=== PATIENT | male | born 1980 | race Caucasian/White ===

== ENCOUNTER 2017-02-23 11:45 | Observation (INO) | payer SELFPAY ==
[~2017-02-23] VITALS: Ht 165.1 cm; Wt 89.0 kg
[~2017-02-23 11:45] MED LIST: ANTISOL30 EACH EAR; CEPH500C3 PO; CIPR0.3S EACH EAR; CIPR500T4 PO; IBUP800T23 PO; LORTA5 PO
[2017-02-23 11:47] VITALS: BP 158/95; PULSE 101; RESP 17; TEMP 97.8; O2SAT 96
--- NOTE | 2017-02-23 12:10 | PD ---
HPI Chief Complaint: Headache Time Seen by Provider: 12:10 Travel History International Travel<30 days: No Contact w/Intl Traveler<30days: No Traveled to known affect area: No History of Present Illness HPI 37-year-old male came to the emergency room brought by his with history of numbness of his left upper extremity, headache and pressure behind both eyes. Patient says this started at 10:30 AM. 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 Patient has never had these kind of symptoms before. Currently patient says his left hand up to his wrist is feeling numb. He says the light bothers and his vision is slightly blurry. Vital signs are stable otherwise. Patient is a smoker. No other known medical history. [facility] Past Medical History Narrative Medical List of his past medical, surgical, social and family history is reviewed from the nursing note. Social History Tobacco Use: No Allergies-Medications (Allergen,Severity, Reaction): Coded Allergies: No Known Allergies (Unverified Allergy, Unknown, 02/23/17) Comments No known drug allergies. Reported Meds & Prescriptions Reported Meds & Active Scripts Active Narrative Medication List of his home medications reviewed from the nursing note. Review of Systems Except as stated in HPI: all other systems reviewed are Neg Neurologic: Positive: Paresthesia Physical Exam Narrative GENERAL: Awake, alert, anxious, moderate distress SKIN: Focused skin assessment warm/dry. HEAD: Atraumatic. Normocephalic. EYES: Pupils equal and round. No scleral icterus. No injection or drainage. ENT: No nasal bleeding or discharge. Mucous membranes pink and moist. NECK: Trachea midline. No JVD. CARDIOVASCULAR: Regular rate and rhythm. No murmur appreciated. RESPIRATORY: No accessory muscle use. Clear to auscultation. Breath sounds equal bilaterally. GASTROINTESTINAL: Abdomen soft, non-tender, nondistended. Hepatic and splenic margins not palpable. MUSCULOSKELETAL: No obvious deformities. No clubbing. No cyanosis. No edema. NEUROLOGICAL: Awake and alert. No obvious cranial nerve deficits. Motor grossly within normal limits. Normal speech. NIH stroke score of 1-2 slight left upper extremity weakness PSYCHIATRIC: Appropriate mood and affect; insight and judgment normal. Data Data Last Documented VS Vital Signs Date Time Temp Pulse Resp B/P (MAP) Pulse Ox O2 Delivery O2 Flow Rate FiO2 02/23/17 13:14 83 18 129/76 (93) 97 Room Air 02/23/17 12:18 21 02/23/17 11:47 97.8 Orders Orders Activity Bed Rest (02/23/17 ) Electrocardiogram (02/23/17 ) I-Stat Creatinine (02/23/17 12:16) I-Stat Profile (02/23/17 12:16) Prothrombin Time / Inr (Pt) (02/23/17 12:16) Act Partial Throm Time (Ptt) (02/23/17 12:16) Complete Blood Count With Diff (02/23/17 12:16) Fibrinogen (02/23/17 12:16) Creatine Kinase (Cpk) (02/23/17 12:16) Troponin I (02/23/17 12:16) Ua Includes Microscopic (02/23/17 12:16) Drug Screen, Random Urine (02/23/17 12:16) Type And Screen (02/23/17 12:16) Ct Brain W/O Iv Contrast(Rout) (02/23/17 ) Consult Neurology (02/23/17 ) Blood Glucose (02/23/17 12:16) Ecg Monitoring (02/23/17 12:16) Neuro Checks Q2HX12,Q4H (02/23/17 12:16) Nursing Bedside Swallow Assess .ONCE (02/23/17 12:16) Iv Access Insert/Monitor (02/23/17 12:16) NPO (02/23/17 12:16) Oximetry (02/23/17 12:16) Oxygen Administration (02/23/17 12:16) Sodium Chlor 0.9% 1000 Ml Inj (Ns 1000 M (02/23/17 12:16) Resp Oxygen Javier C Titrat 1-4 L (02/23/17 12:16) Cath For Specimen (02/23/17 12:16) Cta Brain W Iv Contrast W 3d (02/23/17 ) Cta Neck W Iv Contrast W 3d (02/23/17 ) (Hub Use Only)Inp Phy Cons/Ref (02/23/17 ) Aspirin (Aspirin) (02/23/17 13:00) Acetaminophen (Tylenol) (02/23/17 13:15) Lipid Profile (02/23/17 13:43) Aspirin Ec (Ecotrin Ec) (02/24/17 09:00) Scd&Teds Bilateral/Knee High DYANA.QSHIFT (02/23/17 13:44) Iohexol 350 Inj (Omnipaque 350 Inj) (02/23/17 13:45) Admit Order (Ed Use Only) (02/23/17 13:52) Echo 2d Comp With Doppler (02/24/17 ) Labs Laboratory Tests Test 02/23/17 12:20 02/23/17 13:10 White Blood Count 6.5 TH/MM3 Red Blood Count 4.84 MIL/MM3 Hemoglobin 14.9 GM/DL Bedside Hemoglobin 15.0 G/DL Hematocrit 44.3 % Bedside Hematocrit 44.0 % Mean Corpuscular Volume 91.4 FL Mean Corpuscular Hemoglobin 30.8 PG Mean Corpuscular Hemoglobin Concent 33.6 % Red Cell Distribution Width 12.8 % Platelet Count 263 TH/MM3 Mean Platelet Volume 6.7 FL Neutrophils (%) (Auto) 67.4 % Lymphocytes (%) (Auto) 22.6 % Monocytes (%) (Auto) 8.8 % Eosinophils (%) (Auto) 0.5 % Basophils (%) (Auto) 0.7 % Neutrophils # (Auto) 4.4 TH/MM3 Lymphocytes # (Auto) 1.5 TH/MM3 Monocytes # (Auto) 0.6 TH/MM3 Eosinophils # (Auto) 0.0 TH/MM3 Basophils # (Auto) 0.0 TH/MM3 CBC Comment DIFF FINAL Differential Comment Prothrombin Time 10.6 SEC Prothromb Time International Ratio 1.0 RATIO Activated Partial Thromboplast Time 27.5 SEC Fibrinogen 314 mg/dL Bedside Sodium 140 MMOL/L Bedside Potassium 3.9 MMOL/L Bedside Chloride 100 MMOL/L Bedside Blood Urea Nitrogen 9 MG/DL Bedside Creatinine 0.9 MG/DL Bedside Glucose 99 MG/DL Total Creatine Kinase 105 U/L Troponin I LESS THAN 0.02 NG/ML Triglycerides Level 122 MG/DL Cholesterol Level 169 MG/DL LDL Cholesterol 104 MG/DL HDL Cholesterol 40.4 MG/DL Cholesterol/HDL Ratio 4.18 RATIO Urine Color YELLOW Urine Turbidity CLEAR Urine pH 6.5 Urine Specific [place] 1.017 Urine Protein NEG mg/dL Urine Glucose (UA) NEG mg/dL Urine Ketones NEG mg/dL Urine Occult Blood NEG Urine Nitrite NEG Urine Bilirubin NEG Urine Urobilinogen LESS THAN 2.0 MG/DL Urine Leukocyte Esterase NEG Urine RBC 1 /hpf Urine WBC LESS THAN 1 /hpf Urine Squamous Epithelial Cells <1 /hpf Urine Opiates Screen NEG Urine Barbiturates Screen NEG Urine Amphetamines Screen NEG Urine Benzodiazepines Screen NEG Urine Cocaine Screen NEG Urine Cannabinoids Screen NEG MDM Medical Decision Making Medical Screen Exam Complete: Yes Emergency Medical Condition: Yes Medical Record Reviewed: Yes Interpretation(s) Twelve-lead EKG was reviewed by me. Normal sinus rhythm, normal axis, nonspecific ST-T wave changes. Heart rate of 76 bpm. Differential Diagnosis CVA, TIA, head bleed Narrative Course 1:40 PM given his symptoms and patient said that his numbness has been increasing and going up to his mid arm I called for a stroke alert. CT head and CTA were negative. I discussed the case with Dr. Simmons who was on for neurology. She is currently here evaluating the patient. Patient is not a TPA candidate which is agreed by both of us. Patient was given 1 full strength aspirin and Tylenol for his headache. Blood test results of back and within normal limits. She would work him up for TIA including MRI and echocardiogram. Awaiting for the hospitalist to call back for admission for observation. Procedures EKG Prior to Arrival: No Physician Communication Physician Communication Dr. Simmons Diagnosis Primary Impression: TIA (transient ischemic attack) Qualified Codes: G45.9 - Transient cerebral ischemic attack, unspecified Admitting Information Admitting Physician Requests: Observation Scripts Osman LICEA (Aspirin ) 81 Mg Tabdr 81 MG PO DAILY for transient neurological symptom, #31 TAB Prov: Marquita Gama 02/24/17 Hernandez Fu MD Feb 23, 2017 12:10
[2017-02-23] MEDS ORDERED: SODIUM CHLOR 0.9% 1000 ML INJ 1,000 ML IV ONE (12:16)
[2017-02-23 12:18] VITALS: O2SAT 95
--- NOTE | 2017-02-23 12:49 | RADRPT ---
EXAM DATE/TIME: 02/23/2017 12:16 [facility] COMPARISON: No previous studies available for comparison. INDICATIONS : Stroke alert bilateral weakness. RADIATION DOSE: 56.35 CTDIvol (mGy) This report was called by Dr. Cedeño to Dr. Fu at 1245 MEDICAL HISTORY : None SURGICAL HISTORY : None. ENCOUNTER: Initial ACUITY: 1 day PAIN SCALE: 5/10 LOCATION: cranial TECHNIQUE: Multiple contiguous axial images were obtained of the head. Using automated exposure control and adj ustment of the mA and/or kV according to patient size, radiation dose was kept as low as reasonably a chievable to obtain optimal diagnostic quality images. DICOM format image data is available electro nically for review and comparison. FINDINGS: CEREBRUM: The ventricles are normal for age. No evidence of midline shift, mass lesion, hemorrhage or acute in farction. No extra-axial fluid collections are seen. POSTERIOR FOSSA: The cerebellum and brainstem are intact. The 4th ventricle is midline. The cerebellopontine angle i s unremarkable. EXTRACRANIAL: The visualized portion of the orbits is intact. SKULL: The calvaria is intact. No evidence of skull fracture. CONCLUSION: Negative exam. Carlitos Cedeño MD on February 23, 2017 at 12:45 Board Certified Radiologist. This report was verified electronically.
[2017-02-23] MEDS ORDERED: ASPIRIN 325 MG TAB PO ONE (13:00)
[2017-02-23 13:02] LABS: I-STAT POTASSIUM 3.9 MMOL/L (3.5-4.9); I-STAT SODIUM 140 MMOL/L (138-146)
[2017-02-23 13:05] LABS: AUTOMATED NEUTROPHIL # 4.4 TH/MM3 (1.8-7.7); BASOPHIL % 0.7 % (0.0-2.0); EOSINOPHIL % 0.5 % (0.0-4.0); HEMATOCRIT 44.3 % (39.0-51.0); HEMO FLAGS DIFF FINAL; LYMPH % 22.6 % (9.0-44.0); LYMPHOCYTE # 1.5 TH/MM3 (1.0-4.8); MEAN CELL VOLUME 91.4 FL (80.0-100.0); MEAN CORPUSCULAR HEMOGLOBIN 30.8 PG (27.0-34.0); MEAN CORPUSCULAR HGB CONC 33.6 % (32.0-36.0); MONO % 8.8 % (0.0-8.0); NEUT % 67.4 % (16.0-70.0); PLATELET COUNT 263 TH/MM3 (150-450); RED BLOOD COUNT 4.84 MIL/MM3 (4.50-5.90); RED CELL DISTRIBUTION WIDTH 12.8 % (11.6-17.2); WHITE BLOOD COUNT 6.5 TH/MM3 (4.0-11.0)
--- NOTE | 2017-02-23 13:05 | RADRPT ---
EXAM DATE/TIME: 02/23/2017 12:24 [facility] COMPARISON: No previous studies available for comparison. INDICATIONS : Stroke alert bilateral arm numnbess. IV CONTRAST: 100 cc Omnipaque 350 (iohexol) IV RADIATION DOSE: 15.39 CTDIvol (mGy) ; Combined studies MEDICAL HISTORY : None SURGICAL HISTORY : None. ENCOUNTER: Initial ACUITY: 1 day PAIN SCALE: 1/10 LOCATION: cranial TECHNIQUE: Volumetric scanning was performed using a multi-row detector CT scanner. The data was post processed with a variety of visualization algorithms including full volume maximum intensity projection, multi -planar sliding thin slab reformation, curved planar reformation, and surface rendering techniques. Using automated exposure control and adjustment of the mA and/or kV according to patient size, radiat ion dose was kept as low as reasonably achievable to obtain optimal diagnostic quality images. DICO M format image data is available electronically for review and comparison. FINDINGS: There is excellent visualization of the major intracranial arteries out to the second-order branch ve ssels. No right A1 segment is identified. The bilateral anterior cerebral arteries fill via a patent left A1 segment and an anterior communicating artery. No significant stenosis or occlusion of the ant erior or middle cerebral arteries is noted. The bilateral posterior cerebral arteries are widely garcia nt. There is a patent left posterior communicating artery. No aneurysm formation is noted. CONCLUSION: 1. No significant stenosis or occlusion of the anterior, middle or posterior cerebral arteries. 2. Bilateral anterior cerebral arteries fill via a patent left A1 segment and an anterior communicati ng artery. 3. No right A1 segment is identified. 4. No aneurysm formation. Gregory Allison MD on February 23, 2017 at 12:59 Board Certified Radiologist. This report was verified electronically.
[2017-02-23 13:13] LABS: APTT (PATIENT) 27.5 SEC (24.3-30.1); PROTHROMBIN TIME - PATIENT 10.6 SEC (9.8-11.6)
[2017-02-23 13:14] VITALS: BP 129/76; PULSE 83; RESP 18; O2SAT 97
[2017-02-23] MEDS ORDERED: ACETAMINOPHEN 325 MG TAB PO ONE (13:15)
[2017-02-23 13:25] LABS: CREATINE KINASE 105 U/L (39-308)
--- NOTE | 2017-02-23 13:34 | RADRPT ---
EXAM DATE/TIME: 02/23/2017 12:22 [facility] COMPARISON: No previous studies available for comparison. INDICATIONS : Stroke alert bilateral arm numbness. IV CONTRAST: 100 cc Omnipaque 350 (iohexol) IV RADIATION DOSE: 15.69 CTDIvol (mGy) ; Combined studies MEDICAL HISTORY : None SURGICAL HISTORY : None. ENCOUNTER: Initial ACUITY: 1 day PAIN SCALE: 1/10 LOCATION: neck Elevated flow velocities and ICA/CCA ratios have been found to correlate with increased degrees of vessel stenosis, calculated as percentage of diameter relative to a normal segment of distal ICA/CCA. TECHNIQUE: Volumetric scanning was performed using a multirow detector CT scanner. The data was post processed with a variety of visualization algorithms including full-volume maximum intensity projection, multip lanar sliding thin-slab reformation, curved-planar reformation, and surface-rendering techniques. Us ing automated exposure control and adjustment of the mA and/or kV according to patient size, radiatio n dose was kept as low as reasonably achievable to obtain optimal diagnostic quality images. DICOM f ormat image data is available electronically for review and comparison. FINDINGS: AORTIC ARCH: There is a three-vessel origin of the great vessels from the aorta. No evidence of ostial narrowing. RIGHT CAROTID: The common carotid artery is intact. The carotid bulb has a normal configuration without ulceration o r narrowing. The internal carotid artery lumen is smooth without stenosis. The external carotid trina ry is intact. LEFT CAROTID: The common carotid artery is intact. The carotid bulb has a normal configuration without ulceration or narrowing. The internal carotid artery lumen is smooth without stenosis. The external carotid ar kristine is intact. VERTEBRALS: Slightly asymmetric with 2 arteries with a dominant right vertebral artery. No stenotic lesions are seen. Miscellaneous: Subcentimeter nodule in the anterior right thyroid lobe. Visualized lung apices are clear. Bilateral enlarged level I, II and III nodes are measuring up to 11 mm on the right and 11 mm on the left. CONCLUSION: 1. Normal neck CTA examination without evidence for significant flow limiting stenosis or dissection. 2. Nonspecific bilateral cervical adenopathy with lymph nodes measuring up to 11 mm in short axis dino meter. Jose G Borjas MD on February 23, 2017 at 13:28 Board Certified Radiologist. This report was verified electronically.
[2017-02-23] MEDS ORDERED: IOHEXOL 350 MG/ML 10 ML VIAL (for RAD DIAG) IVCONTRAST ONE (13:45)
[2017-02-23 13:53] LABS: BLOOD, URINE NEG (NEG); GLUCOSE,URINE NEG (NEG); KETONE, URINE NEG (NEG); NITRITE,URINE NEG (NEG); PH, URINE 6.5 (5.0-8.5); SQUAMOUS EPITHELIAL CELL URINE <1 /hpf (0-5); URINE COLOR YELLOW (YELLW/STRAW)
--- NOTE | 2017-02-23 14:53 | MB ---
cc: ADAM PERRY M.D. DATE OF CONSULTATION 02/23/2017 DATE OF 1980 REASON FOR CONSULTATION Initially came in as a possible Stroke Alert. 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 He had a CAT scan and a CTA that came back unremarkable, and still waiting on the carotids. He still has some pain pressure behind his eyes as well as some lack of sensation, numbness and tingling what he describes from the elbow down to his fingers. Nothing in the legs or in the right arm. He denies any past medical history. He stated he just got over a sinus infection. He denies any head trauma. 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 Denies any significant neck pain. MEDICATIONS Medicines at home are: 1. Ibuprofen. 2. Cipro. 3. Antipyrine benzocaine otic. 4. [place]. 5. Keflex. ALLERGIES None reported to medication. SOCIAL HISTORY Alcohol. No tobacco. PHYSICAL EXAMINATION VITAL SIGNS: Temperature 97.8, heart rate 83, respiratory rate 18, blood pressure 129/76. Satting 97% on room air. NECK: Supple. No bruits. Range of motion is normal. HEART: Regular. LUNGS: Clear. NEUROLOGIC: He is awake, alert and oriented. He is fluent. His pupils are reactive. Visual harmon are full. His face is symmetrical. Tongue is midline. No dysarthria. No odynophagia. Motor-sharif no drift. No leg lag. And [employer] are symmetrical. Cerebellar testing [id number] is normal. DTRs are 1-2+. Toes are downgoing bilaterally. Strength intact throughout. Sensory decreased light touch from the elbow down to his fingertips subjective. LABORATORY CBC is really unremarkable. Coag panel was normal. Glucose 99. Troponin less than 0.02. Tox screen is pending. Urine is pending. IMAGING STUDIES CT brain: Negative for anything acute. CTA of the [place]: No stenosis or occlusion of the anterior, middle or posterior cerebral arteries. CT of the carotids: Normal. Neck CTA: Nonspecific bilateral cervical adenopathy with lymph nodes measuring up to 11 mm in the short axis. IMPRESSION Questionable TIA. RECOMMENDATIONS Recommend at this point in time: 1. Monitor his blood pressure and vitals. 2. Fluids. 3. Start him on a baby aspirin. 4. Check a lipid panel and 2-D echo. 5. Outpatient Holter. 6. Discharge planning if work-up is negative. 7. Risk factor modification depending on what his lipids show and if his blood pressure maintains an elevated state then an antihypertensive. Could this have been a complicated migraine certainly but he really does not have a migraine history, said his last severe migraine that he can ever remember was when he was a child. He has minor headaches with alleviation with an NSAID. With his other symptoms at this point I doubt this is a seizure. He is awake and alert. He did not lose any awareness or consciousness. Will go ahead and get a lipid panel, put him on aspirin, get an echo, outpatient Holter and maintain. If his work-up is unremarkable then certainly he can be discharged home in the morning. The decision was against TPA since his NIH Stroke Scale was 1, and his symptoms have nearly resolved. No indication at this point in time. MD ROSITA Guerrero/GREGORY /1:36 PM /2:28 PM
--- NOTE | 2017-02-23 15:00 | HHI.HP ---
HPI Service CP Hospitalists Primary Care Physician No Primary Care Physician Admission Diagnosis TIA Chief Complaint: headache, numbness BUE and blurred vision Travel History International Travel<30 Days: No Contact w/Intl Traveler <30 Da: No Traveled to Known Affected Are: No History of Present Illness This is a 37 year old male with 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 Patient was at work today in his normal state of health until after he was returning to work after a break around 10:30AM. Patient started to have pain in his head described as a sharp squeezing sensation in the right side of head which then radiated toward the front head. Patient reports that light seems to worsen the headache. Patient also reports vision in both eyes was blurry then clear intermittently. His left hand become numb and the numbness radiated up the arm to the shoulder. Patient also reports that his right arm and hand have been intermittently numb. Patient's fiance who works at the same location reports that the patient's right arm was shaking. Patient felt as though the room was spinning with associated nausea but no vomiting. Patient denies neck pain. Patient does not feel that movement of his neck makes the arm/hand numbness change. no fever, chills, chest pain, palpitations, SOB, abdominal pain, diarrhea or vomiting. Review of Systems Constitutional: COMPLAINS OF: Dizziness, DENIES: Fatigue, Fever, Chills Eyes: COMPLAINS OF: Blurred vision, Eye pain, Photosensitivity, DENIES: Diplopia, Vision loss Respiratory: DENIES: Cough, Sputum production, Shortness of breath Cardiovascular: DENIES: Chest pain, Palpitations, Dyspnea on Exertion, Lower Extremity Edema Gastrointestinal: DENIES: Abdominal pain, Constipation, Diarrhea Neurologic: COMPLAINS OF: Headache, Paresthesias, DENIES: Abnormal gait Psychiatric: DENIES: Anxiety, Confusion, Depression Past Family Social History Past Medical History Denies past medical history Past Surgical History Denies prior surgery Reported Medications no home medications Allergies: Coded Allergies: No Known Allergies (Unverified Allergy, Unknown, 02/23/17) Active Ordered Medications Current Medications Medications (Trade) Dose Ordered Sig/Kole Route Start Time Stop Time Status Last Admin Sodium Chloride 1,000 ml @ 70 mls/hr [id number] ONCE IV 02/23/17 12:16 02/24/17 02:33 02/23/17 12:58 (Ecotrin Ec) 81 mg DAILY PO 02/24/17 09:00 UNV Family History Grandmother had a, "bad heart." Grandfather had Parkinson's disease Social History smokes 1/2 PPD, patient started smoking at age 12 rare ETOH use denies illicit drug use Physical Exam Vital Signs Vital Signs Date Time Temp Pulse Resp B/P (MAP) Pulse Ox O2 Delivery O2 Flow Rate FiO2 02/23/17 13:14 83 18 129/76 (93) 97 Room Air 02/23/17 12:45 (116) Room Air 02/23/17 12:45 98 Room Air 02/23/17 11:47 97.8 101 17 158/95 (116) 96 Physical Exam GENERAL: This is a well-nourished, well-developed patient, in no apparent distress. SKIN: No rashes, ecchymoses or lesions. Cool and dry. HEAD: Atraumatic. Normocephalic. No temporal or scalp tenderness. EYES: Extraocular motions intact. No scleral icterus. No injection or drainage. ENT: Nose without bleeding, purulent drainage or septal hematoma. Throat without erythema, tonsillar hypertrophy or exudate. Uvula midline. Airway patent. NECK: Trachea midline. No JVD or lymphadenopathy. Supple, nontender, no meningeal signs. CARDIOVASCULAR: Regular rate and rhythm RESPIRATORY: Clear to auscultation. Breath sounds equal bilaterally. GASTROINTESTINAL: Abdomen soft, non-tender, nondistended. No guarding. MUSCULOSKELETAL: Extremities without clubbing, cyanosis, or edema. No joint tenderness, effusion, or edema noted. No calf tenderness. Negative Homans sign bilaterally. NEUROLOGICAL: Awake and alert. No focal deficits noted. reflexes intact. Motor and sensory grossly within normal limits. Five out of 5 muscle strength in all muscle groups. Normal speech. Laboratory Laboratory Tests Test 02/23/17 12:20 02/23/17 13:10 White Blood Count 6.5 Red Blood Count 4.84 Hemoglobin 14.9 Bedside Hemoglobin 15.0 Hematocrit 44.3 Bedside Hematocrit 44.0 Mean Corpuscular Volume 91.4 Mean Corpuscular Hemoglobin 30.8 Mean Corpuscular Hemoglobin Concent 33.6 Red Cell Distribution Width 12.8 Platelet Count 263 Mean Platelet Volume 6.7 Neutrophils (%) (Auto) 67.4 Lymphocytes (%) (Auto) 22.6 Monocytes (%) (Auto) 8.8 Eosinophils (%) (Auto) 0.5 Basophils (%) (Auto) 0.7 Neutrophils # (Auto) 4.4 Lymphocytes # (Auto) 1.5 Monocytes # (Auto) 0.6 Eosinophils # (Auto) 0.0 Basophils # (Auto) 0.0 CBC Comment DIFF FINAL Differential Comment Prothrombin Time 10.6 Prothromb Time International Ratio 1.0 Activated Partial Thromboplast Time 27.5 Fibrinogen 314 Bedside Sodium 140 Bedside Potassium 3.9 Bedside Chloride 100 Bedside Blood Urea Nitrogen 9 Bedside Creatinine 0.9 Bedside Glucose 99 Total Creatine Kinase 105 Troponin I LESS THAN 0.02 Urine Color YELLOW Urine Turbidity CLEAR Urine pH 6.5 Urine Specific [place] 1.017 Urine Protein NEG Urine Glucose (UA) NEG Urine Ketones NEG Urine Occult Blood NEG Urine Nitrite NEG Urine Bilirubin NEG Urine Urobilinogen LESS THAN 2.0 Urine Leukocyte Esterase NEG Urine RBC 1 Urine WBC LESS THAN 1 Urine Squamous Epithelial Cells <1 Urine Opiates Screen NEG Urine Barbiturates Screen NEG Urine Amphetamines Screen NEG Urine Benzodiazepines Screen NEG Urine Cocaine Screen NEG Urine Cannabinoids Screen NEG Result Diagram: 02/23/17 1220 Imaging Last Impressions Neck CTA 02/23/17 0000 Signed Impressions: Service Date/Time: Thursday, February 23, 2017 12:22 - CONCLUSION: 1. Normal neck CTA examination without evidence for significant flow limiting stenosis or dissection. 2. Nonspecific bilateral cervical adenopathy with lymph nodes measuring up to 11 mm in short axis diameter. Jose G Borjas MD Head CTA 02/23/17 0000 Signed Impressions: Service Date/Time: Thursday, February 23, 2017 12:24 - CONCLUSION: 1. No significant stenosis or occlusion of the anterior, middle or posterior cerebral arteries. 2. Bilateral anterior cerebral arteries fill via a patent left A1 segment and an anterior communicating artery. 3. No right A1 segment is identified. 4. No aneurysm formation. Gregory Allison MD Head CT 02/23/17 0000 Signed Impressions: Service Date/Time: Thursday, February 23, 2017 12:16 - CONCLUSION: Negative exam. Carlitos Cedeño MD Capanastasiyai VTE Risk Assessment Caprini VTE Risk Assessment: No/Low Risk (score <= 1) Caprini Risk Assessment Model Point Value = 1 Point Value = 2 Point Value = 3 Point Value = 5 Age 41-60 Minor surgery BMI > 25 kg/m2 Swollen legs Varicose veins or History of unexplained or recurrent spontaneous Oral contraceptives or hormone replacement Sepsis (< 1 month) Serious lung disease, including pneumonia (< 1 month) Abnormal pulmonary function Acute myocardial infarction Congestive heart failure (< 1 month) History of inflammatory bowel disease Medical patient at bed rest Age 61-74 Arthroscopic surgery Major open surgery (> 45 min) Laparoscopic surgery (> 45 min) Malignancy Confined to bed (> 72 hours) Immobilizing plaster cast Central venous access Age >= 75 History of VTE Family history of VTE Factor V Leiden Prothrombin [id number] Lupus anticoagulant Anticardiolipin antibodies Elevated serum homocysteine Heparin-induced thrombocytopenia Other congenital or acquired thrombophilia Stroke (< 1 month) Elective arthroplasty Hip, pelvis, or leg fracture Acute spinal cord injury (< 1 month) Prophylaxis Regimen Total Risk Factor Score Risk Level Prophylaxis Regimen 0-1 Low Early ambulation 2 Moderate Order ONE of the following: *Sequential Compression Device (SCD) *Heparin 5000 units SQ BID 3-4 Higher Order ONE of the following medications: *Heparin 5000 units SQ TID *Enoxaparin/Lovenox 40 mg SQ daily (WT < 150 kg, CrCl > 30 mL/min) *Enoxaparin/Lovenox 30 mg SQ daily (WT < 150 kg, CrCl > 10-29 mL/min) *Enoxaparin/Lovenox 30 mg SQ BID (WT < 150 kg, CrCl > 30 mL/min) AND/OR *Sequential Compression Device (SCD) 5 or more Highest Order ONE of the following medications: *Heparin 5000 units SQ TID (Preferred with Epidurals) *Enoxaparin/Lovenox 40 mg SQ daily (WT < 150 kg, CrCl > 30 mL/min) *Enoxaparin/Lovenox 30 mg SQ daily (WT < 150 kg, CrCl > 10-29 mL/min) *Enoxaparin/Lovenox 30 mg SQ BID (WT < 150 kg, CrCl > 30 mL/min) AND *Sequential Compression Device (SCD) Assessment and Plan Problem List: (1) TIA (transient ischemic attack) ICD Codes: G45.9 - Transient cerebral ischemic attack, unspecified Status: Acute Plan: This is a 37 year old male with 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 Patient was at work felt to be in his normal state of health until after he was returning to work after a break. Patient started to have pain described as a sharp squeezing sensation in the right side of head which then radiated toward the front. Patient reports that light seems to worsen the headache. Patient also reports vision in both eyes was blurry then clear intermittently. His left hand become numb and the numbness radiated up the arm to the shoulder. Jessica who works at the same location reports that the patient's right arm was shaking. Patient felt as though the room was spinning with associated nausea but no vomiting. Patient denies neck pain. Patient does not feel that movement of his neck makes the arm/hand numbness change. Patient doesn't pursue recent sinus infection Patient given aspirin and started on aspirin daily Patient brought into the ER as a possible stroke- patient has already been seen by a neurologist Head CT reviewed: negative exam Head CTA reviewed and reveals: No significant stenosis or occlusion of the anterior, middle or posterior cerebral arteries. Bilateral anterior cervical arteries fill via the patent left A1 segment in the anterior communicating artery. No right A1 segment is identified. No aneurysm formation Neck CTA reviewed and reveals normal neck CT examination without evidence of significant flow-limiting stenosis or dissection. Nonspecific bilateral cervical adenopathy with lymph nodes measuring up to 11 mm in short axis diameter. Lipid profile pending Permissive hypertension Head of bed flat 2-D echocardiogram ordered and pending Patient nothing by mouth Neurology consulted and evaluated the patient. Recommends outpatient Holter monitor and discharge if workup is negative. MRI C spine to further evaluate DVT prophylaxis with SCDs Problem Qualifiers (1) TIA (transient ischemic attack): Qualified Codes: G45.9 - Transient cerebral ischemic attack, unspecified Mayra Faustin Feb 23, 2017 15:00
[2017-02-23 15:42] VITALS: BP 128/82; PULSE 75; RESP 16; TEMP 98.1; O2SAT 97
[2017-02-23] MEDS ORDERED: NALOXONE HCL 0.4 MG/ML AMP IV PUSH PRN (16:30)
[2017-02-23] MEDS ORDERED: SODIUM CHLORIDE 0.9% FLUSH 10 ML FLUSH IV FLUSH PRN (16:30)
[2017-02-23 17:08] VITALS: BP 126/82; PULSE 80; RESP 18; TEMP 98.2; O2SAT 95
[2017-02-23 19:08] LABS: HDL CHOLESTEROL 40.4 MG/DL (40.0-60.0)
[2017-02-23 20:54] VITALS: BP 119/74; PULSE 80; RESP 18; TEMP 98.3; O2SAT 95
--- NOTE | 2017-02-23 20:59 | RADRPT ---
EXAM DATE/TIME: 02/23/2017 19:37 [facility] COMPARISON: No previous studies available for comparison. INDICATIONS : Radiculopathy. Bi-lateral upper extremity numbness. MEDICAL HISTORY : None. SURGICAL HISTORY : None. ENCOUNTER: Subsequent ACUITY: 1 day PAIN SCORE: 3/10 LOCATION: neck TECHNIQUE: Multiplanar, multisequence MRI examination of the cervical spine was performed. FINDINGS: VERTEBRAE: Normal vertebral body height. Homogeneous marrow signal. ALIGNMENT: No evidence of subluxation. CORD: Normal configuration and signal. POST FOSSA: The cerebellar tonsils are normal in position. C2-C3: The thecal sac has a normal configuration. There is no evidence of disc herniation or spinal canal s tenosis. The neural foramina are patent bilaterally. C3-C4: The thecal sac has a normal configuration. There is no evidence of disc herniation or spinal canal s tenosis. The neural foramina are patent bilaterally. C4-C5: The thecal sac has a normal configuration. There is no evidence of disc herniation or spinal canal s tenosis. The neural foramina are patent bilaterally. C5-C6: The thecal sac has a normal configuration. There is no evidence of disc herniation or spinal canal s tenosis. The neural foramina are patent bilaterally. C6-C7: The thecal sac has a normal configuration. There is no evidence of disc herniation or spinal canal s tenosis. The neural foramina are patent bilaterally. C7-T1: The thecal sac has a normal configuration. There is no evidence of disc herniation or spinal canal s tenosis. The neural foramina are patent bilaterally. CONCLUSION: Normal examination for a patient of this age. Quinton Steele MD on February 23, 2017 at 20:56 Board Certified Radiologist. This report was verified electronically.
[2017-02-23] MEDS: SODIUM CHLORIDE 0.9% FLUSH 10 ML FLUSH IV FLUSH SCH (21:06)
[2017-02-23] MEDS ORDERED: ACETAMIN 325 MG/BUTALBITAL 50 MG/CAFFEINE 40 MG TAB PO PRN (22:00)
[2017-02-24 01:25] VITALS: BP 117/69; PULSE 70; RESP 18; TEMP 97.8; O2SAT 97
[2017-02-24 04:49] VITALS: BP 122/76; PULSE 86; RESP 18; TEMP 97.7; O2SAT 96
[2017-02-24 06:44] LABS: AUTOMATED NEUTROPHIL # 4.5 TH/MM3 (1.8-7.7); BASOPHIL % 0.5 % (0.0-2.0); EOSINOPHIL # 0.1 TH/MM3 (0-0.4); EOSINOPHIL % 0.8 % (0.0-4.0); HEMATOCRIT 44.6 % (39.0-51.0); HEMO FLAGS DIFF FINAL; LYMPH % 25.7 % (9.0-44.0); LYMPHOCYTE # 1.8 TH/MM3 (1.0-4.8); MEAN CELL VOLUME 90.5 FL (80.0-100.0); MEAN CORPUSCULAR HEMOGLOBIN 31.6 PG (27.0-34.0); MEAN CORPUSCULAR HGB CONC 34.9 % (32.0-36.0); MONO % 8.8 % (0.0-8.0); NEUT % 64.2 % (16.0-70.0); PLATELET COUNT 262 TH/MM3 (150-450); RED BLOOD COUNT 4.92 MIL/MM3 (4.50-5.90)
[2017-02-24 07:03] LABS: BICARBONATE 28.1 MEQ/L (21.0-32.0); POTASSIUM 4.3 MEQ/L (3.5-5.1)
[2017-02-24 07:08] VITALS: BP 111/62; PULSE 80; RESP 16; TEMP 98.2; O2SAT 96
[2017-02-24] MEDS ORDERED: ASPIRIN EC 81 MG TABEC PO SCH (09:00)
[2017-02-24] MEDS: SODIUM CHLORIDE 0.9% FLUSH 10 ML FLUSH IV FLUSH SCH (09:16)
--- NOTE | 2017-02-24 10:18 | HHI.PR ---
Subjective Remarks Pt had headache last night and took the Fioricet with some improvement No new complaints this morning. Headache is improved NO further numbness in the extremities or blurred vision Vitals are stable Objective Vitals Vital Signs Date Time Temp Pulse Resp B/P (MAP) Pulse Ox O2 Delivery O2 Flow Rate FiO2 02/24/17 07:08 98.2 80 16 111/62 (78) 96 02/24/17 04:49 97.7 86 18 122/76 (91) 96 02/24/17 01:25 97.8 70 18 117/69 (85) 97 02/24/17 00:44 18 02/23/17 20:54 98.3 80 18 119/74 (89) 95 02/23/17 17:08 98.2 80 18 126/82 (97) 95 02/23/17 15:42 98.1 75 16 128/82 (97) 97 02/23/17 15:23 (93) 02/23/17 13:14 83 18 129/76 (93) 97 Room Air 02/23/17 12:45 (116) Room Air 02/23/17 12:45 98 Room Air 02/23/17 12:18 95 21 02/23/17 11:47 97.8 101 17 158/95 (116) 96 Result Diagram: 02/24/17 0515 02/24/17 0515 Other Results Laboratory Tests Test 02/23/17 12:20 02/23/17 13:10 02/24/17 05:15 White Blood Count 6.5 TH/MM3 7.0 TH/MM3 Red Blood Count 4.84 MIL/MM3 4.92 MIL/MM3 Hemoglobin 14.9 GM/DL 15.6 GM/DL Bedside Hemoglobin 15.0 G/DL Hematocrit 44.3 % 44.6 % Bedside Hematocrit 44.0 % Mean Corpuscular Volume 91.4 FL 90.5 FL Mean Corpuscular Hemoglobin 30.8 PG 31.6 PG Mean Corpuscular Hemoglobin Concent 33.6 % 34.9 % Red Cell Distribution Width 12.8 % 13.0 % Platelet Count 263 TH/MM3 262 TH/MM3 Mean Platelet Volume 6.7 FL 7.2 FL Neutrophils (%) (Auto) 67.4 % 64.2 % Lymphocytes (%) (Auto) 22.6 % 25.7 % Monocytes (%) (Auto) 8.8 % 8.8 % Eosinophils (%) (Auto) 0.5 % 0.8 % Basophils (%) (Auto) 0.7 % 0.5 % Neutrophils # (Auto) 4.4 TH/MM3 4.5 TH/MM3 Lymphocytes # (Auto) 1.5 TH/MM3 1.8 TH/MM3 Monocytes # (Auto) 0.6 TH/MM3 0.6 TH/MM3 Eosinophils # (Auto) 0.0 TH/MM3 0.1 TH/MM3 Basophils # (Auto) 0.0 TH/MM3 0.0 TH/MM3 CBC Comment DIFF FINAL DIFF FINAL Differential Comment Prothrombin Time 10.6 SEC Prothromb Time International Ratio 1.0 RATIO Activated Partial Thromboplast Time 27.5 SEC Fibrinogen 314 mg/dL Bedside Sodium 140 MMOL/L Bedside Potassium 3.9 MMOL/L Bedside Chloride 100 MMOL/L Bedside Blood Urea Nitrogen 9 MG/DL Bedside Creatinine 0.9 MG/DL Bedside Glucose 99 MG/DL Total Creatine Kinase 105 U/L Troponin I LESS THAN 0.02 NG/ML Triglycerides Level 122 MG/DL Cholesterol Level 169 MG/DL LDL Cholesterol 104 MG/DL HDL Cholesterol 40.4 MG/DL Cholesterol/HDL Ratio 4.18 RATIO Urine Color YELLOW Urine Turbidity CLEAR Urine pH 6.5 Urine Specific [place] 1.017 Urine Protein NEG mg/dL Urine Glucose (UA) NEG mg/dL Urine Ketones NEG mg/dL Urine Occult Blood NEG Urine Nitrite NEG Urine Bilirubin NEG Urine Urobilinogen LESS THAN 2.0 MG/DL Urine Leukocyte Esterase NEG Urine RBC 1 /hpf Urine WBC LESS THAN 1 /hpf Urine Squamous Epithelial Cells <1 /hpf Urine Opiates Screen NEG Urine Barbiturates Screen NEG Urine Amphetamines Screen NEG Urine Benzodiazepines Screen NEG Urine Cocaine Screen NEG Urine Cannabinoids Screen NEG Blood Urea Nitrogen 9 MG/DL Creatinine 0.86 MG/DL Random Glucose 90 MG/DL Calcium Level 9.1 MG/DL Sodium Level 140 MEQ/L Potassium Level 4.3 MEQ/L Chloride Level 107 MEQ/L Carbon Dioxide Level 28.1 MEQ/L Anion Gap 5 MEQ/L Estimat Glomerular Filtration Rate 101 ML/MIN Imaging Last Impressions Neck CTA 02/23/17 0000 Signed Impressions: Service Date/Time: Thursday, February 23, 2017 12:22 - CONCLUSION: 1. Normal neck CTA examination without evidence for significant flow limiting stenosis or dissection. 2. Nonspecific bilateral cervical adenopathy with lymph nodes measuring up to 11 mm in short axis diameter. Jose G Borjas MD Head CTA 02/23/17 0000 Signed Impressions: Service Date/Time: Thursday, February 23, 2017 12:24 - CONCLUSION: 1. No significant stenosis or occlusion of the anterior, middle or posterior cerebral arteries. 2. Bilateral anterior cerebral arteries fill via a patent left A1 segment and an anterior communicating artery. 3. No right A1 segment is identified. 4. No aneurysm formation. Gregory Allison MD Head CT 02/23/17 0000 Signed Impressions: Service Date/Time: Thursday, February 23, 2017 12:16 - CONCLUSION: Negative exam. Carlitos Cedeño MD Cervical Spine MRI 02/23/17 0000 Signed Impressions: Service Date/Time: Thursday, February 23, 2017 19:37 - CONCLUSION: Normal examination for a patient of this age. Quinton Steele MD Objective Remarks General: NAD, AAOx3 ENT: Enlarged tonsils bilaterally, bifid uvula Neck: Palpable cervical lymph nodes Chest: CTA Cardiac: Regular Abd: +BS, soft ND/NT Ext: No edema A/P Problem List: (1) Headache ICD Codes: R51 - Headache Plan: This is a 37 year old male with no past medical history who works as a fork lifter/driver. Patient was at work felt to be in his normal state of health until after he was returning to work after a break. Patient started to have pain described as a sharp squeezing sensation in the right side of head which then radiated toward the front. Patient reports that light seems to worsen the headache. Patient also reports vision in both eyes was blurry then clear intermittently. His left hand become numb and the numbness radiated up the arm to the shoulder. Jessica who works at the same location reports that the patient's right arm was shaking. Patient felt as though the room was spinning with associated nausea but no vomiting. Patient denies neck pain. Patient does not feel that movement of his neck makes the arm/hand numbness change. Patient doesn't pursue recent sinus infection Patient given aspirin and started on aspirin daily Patient brought into the ER as a possible stroke- patient has already been seen by a neurologist Head CT reviewed: negative exam Head CTA reviewed and reveals: No significant stenosis or occlusion of the anterior, middle or posterior cerebral arteries. Bilateral anterior cervical arteries fill via the patent left A1 segment in the anterior communicating artery. No right A1 segment is identified. No aneurysm formation Neck CTA reviewed and reveals normal neck CT examination without evidence of significant flow-limiting stenosis or dissection. Nonspecific bilateral cervical adenopathy with lymph nodes measuring up to 11 mm in short axis diameter. - Pt noted that he had a cold recently prior to admission because he had a slight residual cough still. - Pt denies any weight changes - He has always had issues with sweating at night which he states has happened since he was a child - He has significantly enlarged tonsils which has been an issues for some time. - The findings on the Neck CTA related to the enlarged lymph nodes could be secondary to recent URI vs. enlarged tonsils vs. other. Lipid profile with LDL 104 BP has been stable 2-D echocardiogram is pending Neurology consulted and evaluated the patient. Recommends outpatient Holter monitor and discharge if workup is negative. MRI C spine --> Normal examination for a patient of this age. Pt has not had any abnormality noted on the telemetry I obtained an appt for him with [facility] Cardiology for Holter Monitor placement for 03/01/17 @ 10:00AM He will need to establish with a [facility] PCP and this was discussed with the patient. Pt will need to followup with Dr. Simmons in 1 week, we will have the Holter results sent to her as she is the requesting physician and he does not have a PCP at this time. He will continue the aspirin daily Pt declined a prescription of Fioricet (2) Transient neurological symptoms ICD Codes: R29.818 - Other symptoms and signs involving the nervous system Status: Acute Plan: - See above Assessment and Plan Patient examined. Assessment and plan formulated with Marquita Gama PA-C. I agree with the above. symptoms resolved. pt ambulating no headache or vision problems. no parasthias f/u neurology ?atypical migraine no evidence for acute cva/hemorrhage, mass, no cervical cord impingement. basic labs nml. discussed nonspecific cervical lymphadenopathy with pt. he has had recent uri and still getting over it. Also he has enlarged tonsils that he is planning to get removed. I will give him copies of his imaging studies. I gave him instruction to establish with pcp at [facility] immediately after dc home...to f/u on the cervical adenopathy and monitoring his medical condition. Problem Qualifiers (1) Headache: Qualified Codes: R51 - Headache Marquita Gama Feb 24, 2017 10:18 Cali Dent MD Feb 24, 2017 13:08
[2017-02-24 11:38] VITALS: PULSE 73
[2017-02-24 11:59] VITALS: BP 119/75; PULSE 90; RESP 16; TEMP 98.2; O2SAT 96
--- NOTE | 2017-02-24 12:47 | HHI.DCPOC ---
Discharge Care Plan Diagnosis: (1) Headache (2) Transient neurological symptoms Goals to Promote Your Health Pt has an appt with [facility] Cardiology for Holter Monitor placement for Wednesday, @ 10:00AM - If you need to change your appt call, - [facility] Cardiology address is [address] [facility]. Office is located on the first floor of the [facility] building. He will need to establish with a [facility] PCP and this was discussed with the patient. He had noted enlarged lymph nodes on the neck CTA which may be related to URI vs. tonsils vs. other but this needs to be followed up on by a PCP. Pt will need to followup with Dr. Simmons in 1 week, we will have the Holter results sent to her as she is the requesting physician and he does not have a PCP at this time. He will continue the aspirin daily until seen by Dr. Simmons to decide about need to continue this medication. Directions to Meet Your Goals Take your medications as prescribed Follow your dietary instruction Follow activity as directed Keep your appointments as scheduled Take your immunizations and boosters as scheduled If your symptoms worsen call your PCP, if no PCP go to Urgent Care Center or Emergency Room Smoking is Dangerous to Your Health. Avoid second hand smoke Call the 24-hour hour crisis hotline for domestic abuse at Marquita Gama Feb 24, 2017 12:47
[2017-02-24] MEDS ORDERED: ECASA81 PO (12:52)
--- NOTE | 2017-02-24 15:35 | ECHRPT ---
Indication: cva/tia CONCLUSIONS Normal left ventricular size. Mild concentric left ventricular hypertrophy. The left ventricular systolic function is low normal with an estimated ejection fraction in the rang e of 50- 55%. Atrial septal aneurysm is present (benign finding). BP: 111 / 62 HR: 80 Rhythm: MEASUREMENTS (Male / Female) Normal Values Technical Quality:Good 2D ECHO LV Diastolic Diameter PLAX 4.8 cm 4.2 - 5.9 / 3.9 - 5.3 cm LV Systolic Diameter PLAX 3.6 cm IVS Diastolic Thickness 0.9 cm 0.6 - 1.0 / 0.6 - 0.9 cm LVPW Diastolic Thickness 0.7 cm 0.6 - 1.0 / 0.6 - 0.9 cm LV Relative Wall Thickness 0.3 RV Internal Dim ED PLAX 1.8 cm LA Systolic Diameter LX 3.3 cm 3.0 - 4.0 / 2.7 - 3.8 cm DOPPLER Mitral E Point Velocity 76.5 cm/s Mitral A Point Velocity 63.7 cm/s Mitral E to A Ratio 1.2 TR Peak Velocity 138.0 cm/s TR Peak Gradient 7.6 mmHg FINDINGS LEFT VENTRICLE Normal left ventricular size. Mild concentric left ventricular hypertrophy. The left ventricular systolic function is low normal with an estimated ejection fraction in the rang e of 50- 55%. RIGHT VENTRICLE Normal right ventricular size and systolic function. LEFT ATRIUM The left atrial size is normal. RIGHT ATRIUM The right atrial size is normal. ATRIAL SEPTUM Atrial septal aneurysm is present (benign finding). AORTA The aortic root and proximal ascending aorta are normal in size on limited imaging. MITRAL VALVE Structurally normal mitral valve. No mitral valve stenosis or regurgitation. AORTIC VALVE Trileaflet aortic valve. No aortic valve stenosis or regurgitation. TRICUSPID VALVE Structurally normal tricuspid valve. No tricuspid valve stenosis or regurgitation. PULMONARY VALVE The pulmonary valve is not well visualized. VESSELS The inferior vena cava is normal in size. PERICARDIUM No pericardial effusion. Tae Hicks MD, FACC (Electronically Signed) Final Date:24 February 2017 15:34
--- NOTE | 2017-02-24 15:59 | EKG ---
Date Performed: 02/23/2017 Time Performed: 12:49:51 PTAGE: 37 years EKG: Sinus rhythm NORMAL ECG NO PREVIOUS TRACING DOCTOR: Mejia Chu Interpretating Date/Time 02/24/2017 15:57:57
== END 2017-02-24 18:23 | disposition home or self-care (01) ==
LOC: NEPC 11:45 → NEDA 13:54 → NEPFCDU 15:30
PROVIDERS: ADMIT Hospitalist; ATTEND Hospitalist
DX: G45.9 Transient cerebral ischemic attack, unspecified (principal); R59.0 Localized enlarged lymph nodes; M54.10 Radiculopathy, site unspecified; F17.200 Nicotine dependence, unspecified, uncomplicated
CPT/HCPCS: 70450; 70496; 70498; 72141; 80048; 80061; 80307; 81001; 82435; 82550; 82565; 82947; 84132; 84295; 84484; 84520; 85025; 85384; 85610; 85730; 86850; 86900; 86901; 93005; 93306; 96360; 96361; 99285; G0378; J7030; P9612; Q9967